=== PATIENT | female | born 1940 | race Caucasian/White ===

== ENCOUNTER 2016-08-19 13:07 | Emergency (ER) | payer MEDICARE, BC ==
[2016-08-19 13:25] VITALS: TEMP 97.1
[2016-08-19 14:02] VITALS: O2SAT 95
[2016-08-19] MEDS ORDERED: ONDANSETRON HCL 4 MG/2 ML SOL IV ONE (14:10)
[2016-08-19] MEDS ORDERED: ONDANSETRON HCL 4 MG/2 ML SOL ONE (14:13)
[2016-08-19] MEDS ORDERED: SODIUM CHLORIDE 0.9% 1000 ML SOL IV SCH (14:15)
[2016-08-19 14:17] LABS: BASOPHILS % (AUTO) 1 % (0-3); EOSINOPHILS % (AUTO) 3 % (0-9); HEMATOCRIT 39 % (35-47); MEAN CORPUSCULAR HGB CONC 33.5 gm/dl (32.0-36.0); MEAN CORPUSCULAR VOLUME 95 fL (81-99); MONOCYTES % (AUTO) 10.7 % (0-12); NEUTROPHILS % (AUTO) 64.8 % (37-80)
[2016-08-19 14:26] LABS: CALCIUM 8.6 mg/dl (8.5-10.1); POTASSIUM 3.9 mMol/L (3.5-5.1)
[2016-08-19 16:31] VITALS: BP 134/70; PULSE 74; RESP 16
== END 2016-08-19 15:38 | disposition home or self-care (01) | DRG 392 ==
LOC: ED 13:07
DX: K52.9 Noninfective gastroenteritis and colitis, unspecified (principal); R06.02 Shortness of breath
CPT/HCPCS: 36415; 80048; 83880; 85025; 85378; 93005; 96365; 96374; 99282; 99284; J2405

== ENCOUNTER 2017-07-24 05:17 | Emergency (ER) | payer MEDICARE, BC ==
[2017-07-24 05:26] VITALS: TEMP 97.3
[2017-07-24] MEDS ORDERED: NITROGLYCERIN 0.4 MG TAB SL PRN (06:01)
[2017-07-24] MEDS ORDERED: ASPIRIN 81 MG CHEWABLE CTB PO STA (06:01)
[2017-07-24] MEDS ORDERED: SODIUM CHLORIDE 0.9% FLUSH 10 ML SOL IV PRN (06:01)
[2017-07-24] MEDS ORDERED: ASPIRIN 81 MG CHEWABLE CTB ONE (06:13)
[2017-07-24 06:46] LABS: BASOPHILS % (AUTO) 1 % (0-3); EOSINOPHILS % (AUTO) 2 % (0-9); HEMATOCRIT 38 % (35-47); MEAN CORPUSCULAR HGB CONC 35.8 gm/dl (32.0-36.0); MEAN CORPUSCULAR VOLUME 90 fL (81-99); MONOCYTES % (AUTO) 7.7 % (0-12); NEUTROPHILS % (AUTO) 79.6 % (37-80)
[2017-07-24 06:57] LABS: ALBUMIN 3.4 gm/dl (3.4-5.0); ALT 20 IU/L (14-63); CALCIUM 8.6 mg/dl (8.5-10.1); GLOM FILT RATE 82 mL/min (>60); POTASSIUM 3.7 mMol/L (3.5-5.1); SODIUM 142 mMol/L (136-145)
[2017-07-24 07:34] VITALS: BP 149/71; PULSE 73; RESP 17; O2SAT 99
== END 2017-07-24 07:30 | disposition home or self-care (01) | DRG 153 ==
LOC: ED 05:17
DX: J06.9 Acute upper respiratory infection, unspecified (principal); R07.89 Other chest pain
CPT/HCPCS: 36415; 71045; 80053; 82550; 84484; 85025; 85378; 85610; 85730; 93005; 99284